=== PATIENT | male | born 1975 | race African-American/Black ===

== ENCOUNTER 2020-12-16 09:34 | Emergency (ER) | payer MEDICAID ==
[~2020-12-16] VITALS: Ht 152.4 cm; Wt 73.0 kg
[2020-12-16 10:40] VITALS: BP 108/75
== END 2020-12-16 10:57 | disposition home or self-care (01) ==
LOC: ER 09:34
DX: U07.1 COVID-19 (principal); R05.9 Cough, unspecified
CPT/HCPCS: 71045; 82962; 99284; C9803; U0003; U0005